=== PATIENT | male | born 1970 | race Caucasian/White ===

== ENCOUNTER 2021-03-28 16:53 | Day surgery (SDC) | payer BC ==
[2021-03-28] MEDS ORDERED: Decadron 4 MG INJ IV ONE (16:54)
[2021-03-28] MEDS ORDERED: Sodium Chloride 0.9(Preservative Free) 10 ML IJ ONE (16:54)
[2021-03-28] MEDS ORDERED: Xylocaine 1% Vial 30 ML PF IJ ONE (16:54)
[2021-03-28] MEDS ORDERED: Lactated Ringers 1,000 ML IV ONE (18:01)
--- NOTE | 2021-03-29 11:54 | XRAY ---
34 seconds fluoroscopy time in surgery for cervical JADEN.
--- NOTE | 2021-04-01 01:06 | XRAY ---
Indication: Cervical JADEN. Intraoperative fluoroscopy was provided for 34 seconds. 2 digital spot images submitted for interpretation demonstrate a single needle tip projected over the cervical-thoracic junction near the midline. A small amount of contrast has been injected for needle tip placement. Correlate with intraoperative findings/report.
== END 2021-03-28 18:27 | disposition home or self-care (01) ==
LOC: SDC-PAIN 16:53
PROVIDERS: ATTEND Psychiatry & Neurology Pain Medicine
DX: M54.12 Radiculopathy, cervical region (principal); Z79.899 Other long term (current) drug therapy
CPT/HCPCS: 62321; 72040; 77002; J1100; J2001; Q9966

== ENCOUNTER 2021-05-23 13:59 | Day surgery (SDC) | payer BC ==
[2021-05-23] MEDS ORDERED: LIDOCAINE HCL 2% 100 MG/5 ML IJ ONE (14:00)
[2021-05-23] MEDS ORDERED: DIPRIVAN 200 MG/20 ML IV ONE ×2 (15:18→15:31)
[2021-05-23] MEDS ORDERED: Lactated Ringers 1,000 ML IV ONE (17:29)
--- NOTE | 2021-05-23 18:24 | XRAY ---
Indication: Right C2-C5 MBB. Intraoperative fluoroscopy provided for 21 seconds. 2 digital spot image submitted for interpretation demonstrates posterior needle tips projecting over the expected right C2-C5 nerve roots. Correlate with intraoperative findings/report.
--- NOTE | 2021-05-23 19:01 | XRAY ---
21 seconds of fluoroscopy was used in surgery for a right C2-C5 MBB.
== END 2021-05-23 15:50 | disposition home or self-care (01) ==
LOC: SDC-PAIN 13:59
PROVIDERS: ATTEND Psychiatry & Neurology Pain Medicine
DX: M47.812 Spondylosis without myelopathy or radiculopathy, cervical region (principal)
CPT/HCPCS: 64491; 64492; 64493; 72040; 77002; J2704

== ENCOUNTER 2021-07-04 14:46 | Day surgery (SDC) | payer BC ==
[2021-07-04] MEDS ORDERED: BUPIVACAINE 0.5% VIAL IJ ONE (14:47)
[2021-07-04] MEDS ORDERED: Decadron 4 MG INJ IV ONE (14:47)
[2021-07-04] MEDS ORDERED: Lactated Ringers 1,000 ML IV ONE (16:25)
[2021-07-04] MEDS ORDERED: DIPRIVAN 200 MG/20 ML IV ONE (17:09)
--- NOTE | 2021-07-04 21:42 | XRAY ---
Indication: Right C2-C5 MBB. Intraoperative fluoroscopy provided for 54 seconds. 3 digital spot image submitted for interpretation demonstrates posterior needle tips projecting over the expected right C2-C5 nerve roots. Correlate with intraoperative findings/report.
--- NOTE | 2021-07-05 09:04 | XRAY ---
54 seconds fluoroscopy time in surgery for right C2-C5 MBB.
== END 2021-07-04 18:00 | disposition home or self-care (01) ==
LOC: SDC-PAIN 14:46
PROVIDERS: ATTEND Psychiatry & Neurology Pain Medicine
DX: M47.812 Spondylosis without myelopathy or radiculopathy, cervical region (principal); G43.909 Migraine, unspecified, not intractable, without status migrainosus; Z79.899 Other long term (current) drug therapy
CPT/HCPCS: 64490; 64491; 64492; 72040; 77002; J1100; J2704

== ENCOUNTER 2021-08-22 07:46 | Day surgery (SDC) | payer BC ==
[2021-08-22] MEDS ORDERED: BUPIVACAINE 0.5% VIAL IJ ONE (07:47)
[2021-08-22] MEDS ORDERED: Decadron 4 MG INJ IV ONE (07:47)
[2021-08-22] MEDS ORDERED: Xylocaine 1% Vial 30 ML PF IJ ONE (07:47)
[2021-08-22] MEDS ORDERED: DIPRIVAN 200 MG/20 ML IV ONE (09:05)
[2021-08-22] MEDS ORDERED: Ketamine HCl 50 MG/ML ONE (09:05)
[2021-08-22] MEDS ORDERED: Lactated Ringers 1,000 ML IV ONE (10:12)
--- NOTE | 2021-08-22 10:34 | XRAY ---
Indication: Right C2-C5 RFA. Intraoperative fluoroscopy provided for 1 minute 14 seconds. 2 digital spot image submitted for interpretation demonstrate posterior needle tips projecting over the expected right C2-C5 nerve roots. Correlate with intraoperative findings/report.
--- NOTE | 2021-08-22 10:38 | XRAY ---
1 minute and 14 seconds fluoroscopy time in surgery for right C2-C5 RFA.
== END 2021-08-22 09:55 | disposition home or self-care (01) ==
LOC: SDC-PAIN 07:46
PROVIDERS: ATTEND Psychiatry & Neurology Pain Medicine
DX: M47.812 Spondylosis without myelopathy or radiculopathy, cervical region (principal); Z79.899 Other long term (current) drug therapy
CPT/HCPCS: 64633; 64634; 72040; 77002; J1100; J2001; J2704

== ENCOUNTER 2022-08-15 06:49 | Day surgery (SDC) | payer BC ==
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
[2022-08-15] MEDS ORDERED: Lactated Ringers 1,000 ML IV SCH (07:00)
[2022-08-15] MEDS ORDERED: Lactated Ringers 1,000 ML IV ONE (07:25)
[2022-08-15] MEDS ORDERED: Xopenex 1.25 MG/0.5 ML UD NEBULE IH ONE (07:26)
[2022-08-15] MEDS ORDERED: Sodium Chloride 3 ML UD NEBULES IH ONE (07:27)
[2022-08-15] MEDS ORDERED: Xylocaine-Mpf 2% 5 Ml Vial ONE (09:25)
[2022-08-15] MEDS ORDERED: Versed 2 MG/2 ML Injection ONE (09:25)
[2022-08-15] MEDS ORDERED: DIPRIVAN 200 MG/20 ML IV ONE ×2 (09:25→10:13)
--- NOTE | 2022-08-15 10:55 | OP ---
SURGERY DATE/TIME: 08/15/2022 1004 PREOPERATIVE DIAGNOSIS: Screening. POSTOPERATIVE DIAGNOSIS: A 2 mm cecal polyp. PROCEDURE: Colonoscopy complete to cecum with hot polypectomy x1. SURGEON: Chaitanya Watts M.D. ANESTHESIA: MAC. COMPLICATIONS: None. CONDITION: Stable. INDICATION: The patient is 52 and has an uncle with colon cancer. He has not had screening yet. He presents for screening. DESCRIPTION OF PROCEDURE: Taken to endoscopy. MAC sedation provided. Scope introduced. Anal digital examination satisfactory. Prostate satisfactory. Scope advanced to the cecum. Distal to the anterior lip of the valve was is a 2 mm polyp taken with hot biopsy forceps. Appendiceal orifice satisfactory. Ileocecal valve and base of the cecum satisfactory. On circumferential withdrawal ascending, hepatic, transverse, splenic, descending, sigmoid, rectum, anus normal. PLAN: Follow up five years.
[2022-08-15 11:19] VITALS: O2SAT 99
[2022-08-15 11:28] VITALS: BP 138/88; PULSE 64
== END 2022-08-15 11:25 | disposition home or self-care (01) ==
LOC: SDC 06:49
PROVIDERS: ATTEND Surgery
DX: Z12.11 Encounter for screening for malignant neoplasm of colon (principal); Z80.0 Family history of malignant neoplasm of digestive organs; D12.0 Benign neoplasm of cecum
CPT/HCPCS: 94640; J2250; J2704; A9270-GY

== ENCOUNTER 2024-07-14 10:26 | Day surgery (SDC) | payer BC ==
[2024-07-14] MEDS ORDERED: LIDOCAINE HCL 1% AMPUL 5 ML IJ ONE (10:27)
[2024-07-14] MEDS ORDERED: Decadron 4 MG INJ IV ONE (10:27)
[2024-07-14] MEDS ORDERED: BUPIVACAINE 0.5% VIAL IJ ONE (10:27)
[2024-07-14] MEDS ORDERED: DIPRIVAN 200 MG/20 ML IV ONE ×2 (12:01→12:05)
--- NOTE | 2024-07-15 09:21 | XRAY ---
21 seconds of fluoroscopy was used in surgery for a right C2-C4 RFA.
--- NOTE | 2024-07-15 16:31 | XRAY ---
Indication: Right C2-C4 RFA. Intraoperative fluoroscopy provided for 21 seconds. 4 digital spot images submitted for interpretation demonstrates posterior needle tips projecting over the expected right C2-C4 nerve roots. Correlate with intraoperative findings/report.
== END 2024-07-14 12:37 | disposition home or self-care (01) ==
LOC: SDC-PAIN 10:26
PROVIDERS: ATTEND Psychiatry & Neurology Pain Medicine
DX: M47.812 Spondylosis without myelopathy or radiculopathy, cervical region (principal)
CPT/HCPCS: 64633; 64634; 72040; 77002; J1100; J2704

== ENCOUNTER 2024-09-22 14:31 | Day surgery (SDC) | payer BC ==
[2024-09-22] MEDS ORDERED: LIDOCAINE HCL 1% AMPUL 5 ML IJ ONE (14:32)
[2024-09-22] MEDS ORDERED: BUPIVACAINE 0.5% VIAL IJ ONE (14:32)
[2024-09-22] MEDS ORDERED: dexAMETHasone sodium phosphate IJ ONE (14:32)
[2024-09-22] MEDS ORDERED: propofoL IV ONE ×2 (16:15→16:29)
--- NOTE | 2024-09-22 16:52 | XRAY ---
27 seconds of fluoroscopy was used in surgery for a right C4-C5 RFA.
--- NOTE | 2024-09-22 16:54 | XRAY ---
Indication: Right C4-C5 RFA. Intraoperative fluoroscopy provided for 27 seconds. 2 digital spot image submitted for interpretation demonstrates posterior needle tips projecting over expected right C4-C5 nerve roots. Correlate with intraoperative findings/report.
== END 2024-09-22 16:47 | disposition home or self-care (01) ==
LOC: SDC-PAIN 14:31
PROVIDERS: ATTEND Psychiatry & Neurology Pain Medicine
DX: M47.812 Spondylosis without myelopathy or radiculopathy, cervical region (principal)
CPT/HCPCS: 64633; 64634; 72040; 77002; J1100; J2704

== ENCOUNTER 2024-10-27 16:06 | Day surgery (SDC) | payer BC ==
[2024-10-27] MEDS ORDERED: ORTHOVISC IU ONE (16:07)
[2024-10-27] MEDS ORDERED: LIDOCAINE HCL 1% AMPUL 5 ML IJ ONE (16:07)
--- NOTE | 2024-10-27 19:13 | XRAY ---
Indication: Right knee injection. Intraoperative fluoroscopy provided for 17 seconds. Single digital spot image submitted for interpretation demonstrates needle tip projecting over right femur intercondylar notch. Small amount of contrast injected for needle tip placement. Correlate with intraoperative findings/report.
--- NOTE | 2024-10-27 19:13 | XRAY ---
Indication: Left knee injection. Intraoperative fluoroscopy provided for 11 seconds. Single digital spot image submitted for interpretation demonstrates needle tip projecting over left femur intercondylar notch. Small amount of contrast injected for needle tip placement. Correlate with intraoperative findings/report.
--- NOTE | 2024-10-28 09:43 | XRAY ---
11 seconds of fluoroscopy was used in surgery for a right intra-articular knee injection.
--- NOTE | 2024-10-28 09:44 | XRAY ---
17 seconds of fluoroscopy was used in surgery for a left intra-articular knee injection.
== END 2024-10-27 18:31 | disposition home or self-care (01) ==
LOC: SDC-PAIN 16:06
PROVIDERS: ATTEND Psychiatry & Neurology Pain Medicine
DX: M17.0 Bilateral primary osteoarthritis of knee (principal)
CPT/HCPCS: 20610; 73560; 77002; J7324; Q9966

== ENCOUNTER 2024-11-03 15:55 | Day surgery (SDC) | payer BC ==
[2024-11-03] MEDS ORDERED: ORTHOVISC IU ONE (15:56)
[2024-11-03] MEDS ORDERED: LIDOCAINE HCL 1% AMPUL 5 ML IJ ONE (15:56)
--- NOTE | 2024-11-03 20:24 | XRAY ---
Indication: Right knee injection. Intraoperative fluoroscopy provided for 6 seconds. Single digital spot images submitted for interpretation demonstrates needle tip projecting over right femur intercondylar notch. Small amount of contrast injected for needle tip placement. Correlate with intraoperative findings/report.
--- NOTE | 2024-11-03 20:24 | XRAY ---
Indication: Left knee injection. Intraoperative fluoroscopy provided for 21 seconds. Single digital spot images submitted for interpretation demonstrates needle tip projecting over left femur intercondylar notch. Small amount of contrast injected for needle tip placement. Correlate with intraoperative findings/report.
--- NOTE | 2024-11-03 20:27 | XRAY ---
6 seconds of fluoroscopy were used in surgery for a right intra-articular knee injection.
--- NOTE | 2024-11-03 20:27 | XRAY ---
21 seconds of fluoroscopy were used in surgery for a left intra-articular knee injection.
== END 2024-11-03 18:45 | disposition home or self-care (01) ==
LOC: SDC-PAIN 15:55
PROVIDERS: ATTEND Psychiatry & Neurology Pain Medicine
DX: M17.0 Bilateral primary osteoarthritis of knee (principal)
CPT/HCPCS: 20610; 73560; 77002; J7324; Q9966

== ENCOUNTER 2024-11-10 15:52 | Day surgery (SDC) | payer BC ==
[2024-11-10] MEDS ORDERED: LIDOCAINE HCL 1% AMPUL 5 ML IJ ONE (15:53)
[2024-11-10] MEDS ORDERED: ORTHOVISC IU ONE (15:53)
--- NOTE | 2024-11-10 18:25 | XRAY ---
Indication: Right knee injection. Intraoperative fluoroscopy provided for 7 seconds. 2 digital spot image submitted for interpretation demonstrates needle tip projecting over right femur intercondylar notch. Small amount of contrast injected for needle tip placement. Correlate with intraoperative findings/report.
--- NOTE | 2024-11-10 18:25 | XRAY ---
Indication: Left knee injection. Intraoperative fluoroscopy provided for 9 seconds. Single digital spot image submitted for interpretation demonstrates needle tip projecting over left femur intercondylar notch. Small amount of contrast injected for needle tip placement. Correlate with intraoperative findings/report.
--- NOTE | 2024-11-11 09:16 | XRAY ---
7 seconds of fluoroscopy was used in surgery for a right intra-articular knee injection.
--- NOTE | 2024-11-11 09:18 | XRAY ---
9 seconds of fluoroscopy was used in surgery for a left intra-articular knee injection.
== END 2024-11-10 17:52 | disposition home or self-care (01) ==
LOC: SDC-PAIN 15:52
PROVIDERS: ATTEND Psychiatry & Neurology Pain Medicine
DX: M17.0 Bilateral primary osteoarthritis of knee (principal)
CPT/HCPCS: 20610; 73560; 77002; J7324; Q9966

== ENCOUNTER 2025-06-22 15:39 | Day surgery (SDC) | payer BC ==
[2025-06-22] MEDS ORDERED: ORTHOVISC IU ONE (15:40)
[2025-06-22] MEDS ORDERED: LIDOCAINE HCL 1% 50 MG/5 ML VL IJ ONE (15:40)
--- NOTE | 2025-06-22 20:06 | XRAY ---
Indication: Right knee injection. Intraoperative fluoroscopy provided for 9 seconds. Single digital spot image submitted for interpretation demonstrates needle tip projecting over right femur intercondylar notch. Small amount of contrast injected for needle tip placement. Correlate with intraoperative findings/report.
--- NOTE | 2025-06-23 09:18 | XRAY ---
9 seconds of fluoroscopy was used in surgery for a left intra-articular knee injection.
--- NOTE | 2025-06-23 09:19 | XRAY ---
9 seconds of fluoroscopy was used in surgery for a right intra-articular knee injection.
== END 2025-06-22 19:15 | disposition home or self-care (01) ==
LOC: SDC-PAIN 15:39
PROVIDERS: ATTEND Psychiatry & Neurology Pain Medicine
DX: M17.0 Bilateral primary osteoarthritis of knee (principal)

== ENCOUNTER 2025-06-29 15:49 | Day surgery (SDC) | payer BC ==
[2025-06-29] MEDS ORDERED: LIDOCAINE HCL 1% 50 MG/5 ML VL IJ ONE (15:50)
[2025-06-29] MEDS ORDERED: ORTHOVISC IU ONE (15:50)
--- NOTE | 2025-06-30 08:45 | XRAY ---
Indication: Left knee injection. Intraoperative fluoroscopy provided for 22 seconds. 2 digital spot image submitted for interpretation demonstrates needle tip projecting over left femur intercondylar notch. Small amount of contrast injected for needle tip placement. Correlate with intraoperative findings/report.
--- NOTE | 2025-06-30 08:45 | XRAY ---
Indication: Right knee injection. Intraoperative fluoroscopy provided for 16 seconds. Single digital spot image submitted for interpretation demonstrates needle tip projecting over right femur intercondylar notch. Small amount of contrast injected for needle tip placement. Correlate with intraoperative findings/report.
--- NOTE | 2025-06-30 09:35 | XRAY ---
22 seconds of fluoroscopy was used in surgery for a left intra-articular knee injection.
--- NOTE | 2025-06-30 09:35 | XRAY ---
16 seconds of fluoroscopy was used in surgery for a right intra-articular knee injection.
== END 2025-06-29 19:35 | disposition home or self-care (01) ==
LOC: SDC-PAIN 15:49
PROVIDERS: ATTEND Psychiatry & Neurology Pain Medicine
DX: M17.0 Bilateral primary osteoarthritis of knee (principal)

== ENCOUNTER 2025-07-06 16:12 | Day surgery (SDC) | payer BC ==
[2025-07-06] MEDS ORDERED: LIDOCAINE HCL 1% 50 MG/5 ML VL IJ ONE (16:13)
--- NOTE | 2025-07-06 19:54 | XRAY ---
Indication: Right knee injection. Intraoperative fluoroscopy provided for 8 seconds. Single digital spot image submitted for interpretation demonstrates needle tip projecting over right femur intercondylar notch. Small amount of contrast injected for needle tip placement. Correlate with intraoperative findings/report.
--- NOTE | 2025-07-06 19:54 | XRAY ---
Indication: Left knee injection. Intraoperative fluoroscopy provided for 8 seconds. Single digital spot image submitted for interpretation demonstrates needle tip projecting over left femur intercondylar notch. Small amount of contrast injected for needle tip placement. Correlate with intraoperative findings/report.
--- NOTE | 2025-07-07 09:26 | XRAY ---
8 seconds of fluoroscopy was used in surgery for a left intra-articular knee injection.
--- NOTE | 2025-07-07 09:26 | XRAY ---
8 seconds of fluoroscopy was used in surgery for a right intra-articular knee injection.
== END 2025-07-06 18:55 | disposition home or self-care (01) ==
LOC: SDC-PAIN 16:12
PROVIDERS: ATTEND Psychiatry & Neurology Pain Medicine
DX: M17.0 Bilateral primary osteoarthritis of knee (principal)